=== PATIENT | female | born 1980 ===

== ENCOUNTER → 2018-12-15 21:10 | Outpatient (REF) | payer OTHER, SELFPAY | LOC: LAB 21:10 | PROVIDERS: Visit Provider Naturopath | DX: N39.0 Urinary tract infection, site not specified (principal) | CPT/HCPCS: 87086 ==

== ENCOUNTER → 2018-12-22 21:18 | Outpatient (REF) | payer OTHER, SELFPAY | LOC: LAB 21:18 | PROVIDERS: Visit Provider Naturopath | DX: N20.0 Calculus of kidney (principal); N39.0 Urinary tract infection, site not specified | CPT/HCPCS: 87086 ==